=== PATIENT | female | born 1980 | race Caucasian/White ===

== ENCOUNTER 2020-09-15 07:20 | Day surgery (SDC) | payer SELFPAY ==
[~2020-09-15] VITALS: Ht 165.1 cm; Wt 115.4 kg
[2020-09-15] VITALS (10 sets, daily range): BP systolic 140–164; BP diastolic 76–94; PULSE 85–114; TEMP 98
[~2020-09-15 07:20] MED LIST: ATIVAN 0.50.5 MG/TAB PO; MELATONIN1 M1 PO; NEXIUM 20MG20 MG PO; PROZAC60 MG PO; ZITHROMAX TRI-500 MG PO; ZYRTEC 10MG10 MG PO
[2020-09-15] MEDS ORDERED: SUDAFED30 MG PO (07:49)
[2020-09-15] MEDS ORDERED: NEXIUM 40MG40 MG PO (07:49)
[2020-09-15] MEDS ORDERED: PROZAC60 MG PO (07:49)
[2020-09-15] MEDS ORDERED: CLARITIN 1010 MG/TAB PO (07:49)
[2020-09-15] MEDS ORDERED: NORCO 325 MG-51 TAB PO (13:39)
[2020-09-15] MEDS ORDERED: COLACE 100100 MG/CAP PO (13:39)
--- NOTE | 2020-09-15 18:40 | NUR ---
Patient arrived to floor at approximately 1450. Patient was alert and oriented, but sleepy, O2 at 3L via NC. Post op checks initiated. Nitin drain with minimal output. Lunsford in place per order. IVF to pump. Patient denies pain at this time, call light within reach.
--- NOTE | 2020-09-15 20:00 | NUR ---
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 Assessment complete. VS stable. A&Ox3. Denies pain/nausea/shortness of breath. Lap sites x4-edges well approximated-perera set. Nitin drain to left lower quadrant with <15mls serosanguineous fluid. Lunsford cath draining bloody urine. Has tolerated diet. Will INT. Plan of care discussed for this shift to include HS meds/pain meds/calling for questions/concerns. Verbalizes understanding/denies questions/concerns. Call light in reach Will monitor.
--- NOTE | 2020-09-15 20:15 | NUR ---
Called with c/o pain in pelvis/back. Rating pain 7/10 on pain scale-described as sharp pains-oxycodone given per dr delgadillo. Will monitor.
[2020-09-16 00:38] VITALS: BP 120/74; PULSE 90; TEMP 98
[2020-09-16 03:44] VITALS: BP 129/64; PULSE 76; TEMP 98.1
--- NOTE | 2020-09-16 04:36 | NUR ---
Sitting up in bed watching TV. Scheduled toradol given per dr order. Denies pain/nausea. Hughes cath with bloody output. Discussed pulling hughes cath this am per dr order but patient is reluctant due to stating she will be admitted to hospital longer than expected and "something had to be removed." Will hold off on removal until provider sees patient. FLORENCIO drain output 15mls bloody fluid. Denies any other questions/concerns. Call light in reach. Will monitor.
[2020-09-16 08:01] VITALS: BP 140/60; PULSE 93; TEMP 98.8
--- NOTE | 2020-09-16 08:10 | NUR ---
Dr Kumar and ROMELIA De Luna here to see patient.
--- NOTE | 2020-09-16 08:10 | NUR ---
Lunsford catheter discontinued at this time.
--- NOTE | 2020-09-16 11:27 | NUR ---
SW met with the patient to discuss discharge plan. The patient lives in [place] with her , Patrick ([phone]), and children. She reports independence with ADLs and does not have any DME. The patient's PCP is Dr. Zach Avila and she receives her medications from [facility]. The patient is self pay. She states that she has already been given a FAA. She states that she utilizes [facility] and she is not having any difficulties affording her meds. The patient does not have a DPOA-HC and she was not interested in completing a DPOA-HC at this time. The patient plans to return home with her family upon discharge. No additional needs at this time.
--- NOTE | 2020-09-16 11:56 | NUR ---
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 No needs right now.
[2020-09-16 11:59] VITALS: BP 136/69; PULSE 95; TEMP 98.4
--- NOTE | 2020-09-16 12:03 | NUR ---
Patient alert and oriented, answers questions appropriately. See assessment. Abdomen soft, non tender, non distended. Bowel sounds active x4 quads. +Flatus. Lap sites to abdomen with edges well approximated, no redness or drainage noted. Post op exercises reviewed with patient. No c/o at this time.
[2020-09-16 16:19] VITALS: BP 139/79; PULSE 82; TEMP 98.9
--- NOTE | 2020-09-16 17:19 | NUR ---
Patient sitting up in recliner. Discussed process for FLORENCIO drain removal. Site cleaned with alcohol swabs. Suture removed. Drain pulled with all intact. Patient tolerates well. 2x2s applied to site and reinforced with tegaderm. Patient says that she is going to get dressed at this time.
--- NOTE | 2020-09-16 17:46 | NUR ---
Discharge instructions reviewed with patient, verbalized understanding. Discharged via wheelchair to auto/home with spouse at 1745.
== END 2020-09-16 17:45 | disposition home or self-care (01) ==
LOC: SURG 07:20 → INPTSU 07:20 → SDCO 07:20 → SURG 07:30 → EDSTATUS 07:30 → SURG 09:30 → INPTSU 14:50 → SURG 14:50 → SDCO 09-16 17:45
DX: N13.5 Crossing vessel and stricture of ureter without hydronephrosis (principal); F90.9 Attention-deficit hyperactivity disorder, unspecified type; F41.9 Anxiety disorder, unspecified; F32.9 Major depressive disorder, single episode, unspecified; Z88.1 Allergy status to other antibiotic agents; Z88.5 Allergy status to narcotic agent; Z88.0 Allergy status to penicillin; F17.210 Nicotine dependence, cigarettes, uncomplicated; I10 Essential (primary) hypertension; J45.909 Unspecified asthma, uncomplicated; K21.00 Gastro-esophageal reflux disease with esophagitis, without bleeding
CPT/HCPCS: OP; A4314; A9284; C1729; C1769; C2617; J1100; J1170; J1650; J1885; J2175; J2405; J2704; J3010; J7120

== ENCOUNTER → 2020-10-26 | Outpatient (REF) ==
[~2020-10-26] MED LIST changes: +CLARITIN 1010 MG/TAB PO; +COLACE 100100 MG/CAP PO; +NEXIUM 40MG40 MG PO; +NORCO 325 MG-51 TAB PO; +SUDAFED30 MG PO
== END ==
LOC: WSOH 12:47
DX: Z02.1 Encounter for pre-employment examination (principal)
CPT/HCPCS: Q2035